=== PATIENT | female | born 1955 | race Caucasian/White ===

== ENCOUNTER → 2016-08-21 | Outpatient (CLI) | payer OTHER | LOC: FIMAGING 09:07 | DX: Z12.31 Encounter for screening mammogram for malignant neoplasm of breast (principal); Z80.3 Family history of malignant neoplasm of breast | CPT/HCPCS: G0202 ==

== ENCOUNTER → 2017-02-20 | Outpatient (CLI) | payer OTHER ==
[~2017-02-20] MED LIST: GADOBUTROL 10 ML VIAL IVP ONE; IOPAMIDOL (ISOVUE-300) 100 ML BTL ONE
== END ==
LOC: FIMAGING 14:10
PROVIDERS: ATTEND Internal Medicine
DX: D25.9 Leiomyoma of uterus, unspecified (principal)
CPT/HCPCS: A9585; Q9967

== ENCOUNTER → 2017-04-04 | Outpatient (CLI) | payer OTHER | LOC: BMCIMAGING 12:00 | PROVIDERS: ATTEND Internal Medicine | DX: Z01.812 Encounter for preprocedural laboratory examination (principal) ==

== ENCOUNTER → 2017-09-22 | Outpatient (CLI) | payer OTHER | LOC: FIMAGING 10:12 | PROVIDERS: ATTEND Internal Medicine | DX: Z12.31 Encounter for screening mammogram for malignant neoplasm of breast (principal); Z13.820 Encounter for screening for osteoporosis; M81.0 Age-related osteoporosis without current pathological fracture; Z80.3 Family history of malignant neoplasm of breast ==

== ENCOUNTER → 2018-11-26 | Outpatient (CLI) | payer OTHER | LOC: FIMAGING 09:07 ==